=== PATIENT | female | born 1960 | race Caucasian/White ===

== ENCOUNTER 2024-05-25 13:20 | Outpatient (CLI) | payer MEDICARE, MEDICAID | END 2024-05-25 23:59 | disposition home or self-care (01) | LOC: RAD 13:20 | PROVIDERS: ATTEND Nurse Practitioner Primary Care | DX: R05.1 Acute cough (principal); Z20.822 Contact with and (suspected) exposure to COVID-19 | CPT/HCPCS: 71046 ==